=== PATIENT | male | born 1950 | race Caucasian/White ===

== ENCOUNTER 2023-08-29 10:22 | Outpatient (AMB) | payer MEDICARE, SELFPAY ==
--- NOTE | 2023-08-29 07:53 | A.OFFPC_ITS ---
Vital Signs 08/29/23 10:52 Height 5 ft 6 in Weight 230 lb 4 oz BMI 37.2 BP 118/54 L Blood Pressure Location Lt brachial Position Sitting Pulse 72 Pulse Source Pulse Oximeter Temp 97.8 F Temp Source Temporal Artery Scan Pulse Oximetry (%) 94 Oxygen Delivery Method Room Air Intake Visit Reasons: REINA from [facility] Intake Note: patient new patient visit. Lawn Technician Required: No Allergies No Known Allergies Allergy (Verified 08/29/23 10:53) Tobacco use date assessed: 08/29/23 Fall risk assessment: 1 Fall in past year Last assessed Fall Risk: 08/29/23 Dental Screening Dental Screen Date: 08/29/23 Did you have a dental visit in the last 12 months?: Yes Did you have a dental problem in the last 6 months where you did not have access to dental care?: No Was dental information given to patient?: Patient has dentist HPI HPI Comments History of Present Illness Details This is a 73-year-old male with a past medical history of carotid artery stenosis, type 2 diabetes, coronary artery disease and diabetic neuropathy presenting to transfer from [facility] primary care. We have not received his medical records yet. Patient is upset today with his food and beverage intern office. This has been discussed at a previous visit. States he was kept in line waiting 40 minutes to check in, and then they said he was late. He was still seen. Continues to state that COVID-19 vaccine caused his diabetes. Patient said he is not getting anywhere, but I reminded him that his hemoglobin A1c is at goal whereas previously I recall it was over 10%. He checks blood glucose. He needs a prescription for freestyle Lite strips sent to the pharmacy stating he needs testing 5 times a day. He tried a CGM, and he says it was the worst thing he ever did. He also does not like his freestyle Lite monitor. He had labs in July with endocrinology. I do not have them available today. He is upset they said his testosterone level was normal (he says around 300), but he wants it up around 800. Patient says they said his creatinine was mildly elevated. It will be rechecked in October. He saw Nephrology about a year ago, and he was told that his kidney function was great. He is followed by Cardiology and vascular surgery. He exercises regularly and follows a high-fiber, high protein diet. [facility] Medical History (Updated 08/29/23 @ 16:50 by MARIBEL Henry) Carotid artery stenosis Diabetic neuropathy Coronary artery disease Type 2 diabetes mellitus with cardiac complication Surgical History (Updated 08/27/23 @ 16:40 by MARIBEL Henry) History of right-sided carotid endarterectomy Social History Housing: House Patient Tobacco Use Status: Never used Tobacco e-Cigarette/Vaping Use: Never Used service: Yes Current occupational status: retired Cognitive needs: No Hearing needs: Yes Vision needs: No Questionnaire PHQ-9 Over the last 2 weeks, how often have you been bothered by any of the following problems? 1. Little interest or pleasure in doing things: not at all 2. Feeling down, depressed, or hopeless: not at all 3. Trouble falling or staying asleep, or sleeping too much: nearly every day 4. Feeling tired or having little energy: not at all 5. Poor appetite or overeating: not at all 6. Feeling bad about yourself - or that you are a failure or have let yourself or your family down: not at all 7. Trouble concentrating on things, such as reading the newspaper or watching television: not at all 8. Moving or speaking so slowly that other people could have noticed. Or the opposite - being so fidgety or restless that you have been moving around a lot more than usual: not at all 9. Thoughts that you would be better off or of hurting yourself in some way: not at all Total score: 3 [id number] - PHQ-9 Billing: Yes Source: Developed by Drs. Mau Mills, Carlita Valero, Godfrey Haynes and colleagues, with an educational dennise from [employer]. Thrive Questionnaire Date Thrive assessed: 08/29/23 I am a: Patient What is your living situation today?: I have a steady place to live Within the past 12 months, did the food you bought not last and you didn't have the money to get more?: Never true Within the past 12 months, did you worry whether your food would run out before you got money to buy more?: Never true Do you have trouble paying for medicines?: No Do you have trouble getting transportation to medical appointments?: No Do you have trouble paying your heating and electricity bill?: No Do you have trouble taking care of your child, family member or friend?: No Do you have trouble with day-to-day activities such as bathing, preparing meals, shopping, managing finances, etc.?: No Are you currently unemployed and looking for a job?: No Are you interested in more education?: No Please select the resources that you would like help with: None Currently or been in a relationship where the following occur: No concerns reported THRIVE Score: 0 AUDIT C Alcohol Use Questionnaire (AUDIT-C) 1. How often do you have a drink containing alcohol?: Never Total Score: 0 KADY-7 AMB Questionnaire KADY-7 Date KADY - 7 assessed: 08/29/23 Feeling nervous, anxious, or on edge: 0 = Not at all Not being able to stop or control worryin = Not at all Worrying too much about different things: 0 = Not at all Trouble relaxin = Nearly every day Being so restless that it is hard to sit still: 0 = Not at all Becoming easily annoyed or irritable: 0 = Not at all Feeling afraid as if something awful might happen: 0 = Not at all Total KADY-7 score (0-4 normal; 5-9 mild; 10-14 moderate; 15-21 severe): 3 Source: Developed by Drs. Mau Mills, Carlita Valero, Godfrey Haynes and colleagues, with an educational dennise from [employer]. KADY-7 Assessment Billing KADY-7 Assessment Tool: KADY-7 Assessment 71445 Review of Systems Const Details: Constitutional: No unexplained weight loss, fever, chills or night sweats. Respiratory: No shortness of breath, cough or sputum production. Cardiovascular: No chest pain, chest pressure or chest discomfort. No palpitations or pedal edema. Neurologic: No headache, dizziness, syncope Physical exam (Primary Care) Vital Signs: Last Vital Signs Temp 97.8 F 08/29/23 10:52 Pulse 72 08/29/23 10:52 BP 118/54 L 08/29/23 10:52 Pulse Ox 94 08/29/23 10:52 Oxygen Delivery Method Room Air 08/29/23 10:52 BMI result Body Mass Index 37.2 Tobacco/Smoking Status: Tobacco use Status Tobacco use date assessed 08/29/23 08/29/23 10:56 Patient Tobacco Use Status Never used Tobacco 08/29/23 10:56 e-Cigarette/Vaping Use Never Used 08/29/23 10:56 PHQ-9: PHQ-9 Score PHQ-9: Total score 3 08/29/23 11:18 Thrive Assessment: Date of Thrive Assessment Date Thrive assessed 08/29/23 08/29/23 11:04 Currently or been in a relationship where the following occur: No concerns reported Const Other: Constitutional: Alert, in no distress. Head: Normocephalic. Eyes: Pupils are equal, round and reactive to light. Neck: Supple, Full range of motion. No lymphadenopathy. Respiratory: Clear to auscultation. Cardiovascular: S1 S2 regular. No murmurs Extremities: Warm and well perfused. No clubbing, cyanosis or edema. Assessment and Plan Assessment & Plan (1) Carotid artery stenosis: Code(s): I65.29 - Occlusion and stenosis of unspecified carotid artery Qualifiers: Laterality: right Qualified Code(s): I65.21 - Occlusion and stenosis of right carotid artery (2) Diabetic neuropathy: Code(s): E11.40 - Type 2 diabetes mellitus with diabetic neuropathy, unspecified Qualifiers: Diabetes mellitus type: type 2 Diabetes mellitus complication detail: diabetic polyneuropathy Qualified Code(s): E11.42 - Type 2 diabetes mellitus with diabetic polyneuropathy (3) Coronary artery disease: Code(s): I25.10 - Atherosclerotic heart disease of [place] coronary artery without angina pectoris Qualifiers: Coronary Disease-Associated Artery/Lesion type: [place] artery [place] vs. transplanted heart: [place] heart Associated angina: without angina Qualified Code(s): I25.10 - Atherosclerotic heart disease of [place] coronary artery without angina pectoris (4) Type 2 diabetes mellitus with cardiac complication: Code(s): E11.59 - Type 2 diabetes mellitus with other circulatory complications Plan Patient was instructed to continue his current medications. He is followed by Endocrinology, Cardiology and vascular surgery. I offered a referral to see a different food and beverage intern. Patient says he actually likes seeing his endocrine physician so he declined it today. If he changes his mind he will let me know. Reassured he is getting good care, and this is evidenced by his hemoglobin A1c now at goal. I will send test strips to the pharmacy. We are awaiting his transfer records. Medications: New blood sugar diagnostic (FreeStyle Lite Strips) As directed to test blood sugar 5 times daily for type 2 diabetes. 200 ea 11RF Coding Level of Care Code Est Pt Level 4 (47333) Complex EM visit Add On G2211 Diagnoses Stenosis of right carotid artery I65.21 Laterality: right Diabetic polyneuropathy associated with type 2 diabetes mellitus E11.42 Diabetes mellitus type: type 2 Diabetes mellitus complication detail: diabetic polyneuropathy Coronary artery disease involving [place] coronary artery of [place] heart without angina pectoris I25.10 Coronary Disease-Associated Artery/Lesion type: [place] artery [place] vs. transplanted heart: [place] heart Associated angina: without angina Type 2 diabetes mellitus with cardiac complication E11.59 Additional Codes KADY-7 Assessment Billing - KADY-7 Assessment Tool: KADY-7 Assessment [id number] ([id number])
[2023-08-29 10:52] VITALS: BP 118/54; PULSE 72; TEMP 36.6; O2SAT 94; BMI 37.2
== END 2023-08-29 11:28 | disposition home or self-care (01) ==
PROVIDERS: PCP Physician Assistant Medical; Visit Provider Physician Assistant Medical
DX: I65.21 Occlusion and stenosis of right carotid artery (principal); E11.42 Type 2 diabetes mellitus with diabetic polyneuropathy; E11.59 Type 2 diabetes mellitus with other circulatory complications; I25.10 Atherosclerotic heart disease of native coronary artery without angina pectoris
CPT/HCPCS: 99214; G2211

== ENCOUNTER 2024-02-03 11:35 | Outpatient (AMB) | payer MEDICARE, SELFPAY ==
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
[2024-02-03 11:55] VITALS: BP 116/58; PULSE 67; O2SAT 97; BMI 36.2
== END 2024-02-03 12:37 | disposition home or self-care (01) ==
PROVIDERS: PCP Physician Assistant Medical; Visit Provider Physician Assistant Medical
DX: I65.21 Occlusion and stenosis of right carotid artery (principal); I25.10 Atherosclerotic heart disease of native coronary artery without angina pectoris; E11.59 Type 2 diabetes mellitus with other circulatory complications; E11.42 Type 2 diabetes mellitus with diabetic polyneuropathy

== ENCOUNTER → 2024-02-03 11:35 | Outpatient (BNVA) | payer MEDICARE, SELFPAY | PROVIDERS: PCP Physician Assistant Medical; Visit Provider Physician Assistant Medical | DX: I65.21 Occlusion and stenosis of right carotid artery (principal); I25.10 Atherosclerotic heart disease of native coronary artery without angina pectoris; E11.59 Type 2 diabetes mellitus with other circulatory complications; E11.42 Type 2 diabetes mellitus with diabetic polyneuropathy; Z79.4 Long term (current) use of insulin | CPT/HCPCS: 96127; 99212 ==

== ENCOUNTER → 2024-02-05 08:42 | Outpatient (BNV) | payer MEDICARE, SELFPAY | PROVIDERS: PCP Physician Assistant Medical; Visit Provider Physician Assistant Medical | DX: E11.59 Type 2 diabetes mellitus with other circulatory complications (principal) | CPT/HCPCS: 83036 ==

== ENCOUNTER 2024-03-09 11:05 | Outpatient (AMB) | payer MEDICARE, SELFPAY ==
--- NOTE | 2024-03-09 11:19 | MHC.PC.OV ---
Vital Signs 03/09/24 11:25 Height 5 ft 6 in Weight 216 lb 4 oz BMI 34.9 BP 124/54 L Blood Pressure Location Lt brachial Position Sitting Pulse 62 Pulse Source Pulse Oximeter Pulse Oximetry (%) 93 Oxygen Delivery Method Room Air Intake Visit Reasons: [facility] Intake Note: [facility] discharge. Electrical Laboratory Technician Required: No Allergies rosuvastatin [From Crestor] Allergy (Unknown, Verified 03/09/24 11:22) Muscle cramps Medication List - Last Reconciled 03/09/24 by MARIBEL Henry aspirin 81 mg PO DAILY blood glucose control high,low (FreeStyle Control solution) As directed blood sugar diagnostic (FreeStyle Lite Strips) As directed to test blood sugar 5 times daily for type 2 diabetes. cholecalciferol (vitamin D3) 50 mcg PO DAILY cinnamon bark (Cinnamon) . insulin degludec (Tresiba FlexTouch U-100 insulin) 36 units subcut insulin syringe,safety needle As directed to inject insulin lancets (FreeStyle Lancets) As directed losartan 50 mg PO DAILY magnesium glycinate mg PO potassium citrate PO rosuvastatin 10 mg PO BEDTIME [vitamin b .] [vitamin k 50 .] Tobacco use date assessed: 08/29/23 Dental Screening Dental Screen Date: 08/29/23 HPI HPI Comments History of Present Illness Details This is a 73-year-old male with a past medical history of carotid artery stenosis, type 2 diabetes, coronary artery disease and diabetic neuropathy presenting for hospital follow up. Patient was admitted to [facility] 02/20/2024 for crisis. Diagnoses on patient instructions available to me today included acute insomnia and severe episode of major depression with psychotic features. I do not have the clinical discharge summary from the hospitalization. The patient is very upset that he was involuntarily hospitalized. I asked him to tell me what happened since I do not have the notes today. Patient says that someone from his vascular surgery office called him several times that afternoon after he had a carotid artery ultrasound. He says that they told him repeatedly that they would be able to provide the results but not until later in the day and kept calling him. He became very frustrated. Patient says he told them that he would rather be than get another phone call from them. Shortly after that he says the police were at his door with tasers drawn. He says that they entered his home and brought him to the emergency department and seized his fire arms. Patient says he sat in the emergency department all night. He had an evaluation there, and he said that they then sent him to an inpatient hospital. He feels it was inappropriate. He says there was people who had severe psychiatric illness. They would not let him shave or sleep alone. They would not give him a knife to eat. He is also upset that he was not allowed to follow a diabetic diet while there. He says a lot of the tests they did did not make sense to him. After 5 days he was discharged. He says the entire experience was stressful for him in his . Since discharge he is taking 50 mg of trazodone nightly, but it does not help. He struggles with chronic insomnia, but he has tried other medications for this and [id number] treatments like melatonin. He says over time he has adjusted to this, and he does not feel tired during the day. He goes to the gym every day. He says he focuses fine. When I inquired if he thought this could be a symptom of marisabel that the clinician may have been concerned about or if there is a family history of bipolar disorder or psychosis he said no. Denies prior mental health crisis. Denies thoughts of self-harm or harming others. ROS: Constitutional: No unexplained weight loss, fever, chills, fatigue or night sweats. Eyes: No vision changes Respiratory: No shortness of breath, cough or sputum production. Cardiovascular: No chest pain, chest pressure or chest discomfort. No palpitations or pedal edema. Gastrointestinal: No anorexia, nausea, vomiting or diarrhea. No abdominal pain Neurologic: No headache, dizziness, syncope. + neuropathy. Denies blackouts, syncopal episodes, forgetfulness. Psychiatric: No SI/HI. Denies depression and anxiety. Physical exam: Constitutional: Alert, in no distress. Neck: Supple, Full range of motion. No lymphadenopathy. Respiratory: Clear to auscultation. Cardiovascular: S1 S2 regular. No murmurs. Extremities: Warm and well perfused. No clubbing, cyanosis or edema. Psychiatric: Patient appears agitated when recalling events of the recent hospitalization. [facility] Medical History (Updated 03/09/24 @ 13:39 by MARIBEL Henry) Insomnia Hospital discharge follow-up Carotid artery stenosis Diabetic neuropathy Coronary artery disease Type 2 diabetes mellitus with cardiac complication Surgical History (Updated 08/27/23 @ 16:40 by MARIBEL Henry) History of right-sided carotid endarterectomy Social History Housing: House Patient Tobacco Use Status: Never used Tobacco e-Cigarette/Vaping Use: Never Used service: Yes Current occupational status: retired Cognitive needs: No Hearing needs: Yes Vision needs: No Questionnaire PHQ-9 Over the last 2 weeks, how often have you been bothered by any of the following problems? 1. Little interest or pleasure in doing things: not at all 2. Feeling down, depressed, or hopeless: not at all 3. Trouble falling or staying asleep, or sleeping too much: nearly every day 4. Feeling tired or having little energy: not at all 5. Poor appetite or overeating: not at all 6. Feeling bad about yourself - or that you are a failure or have let yourself or your family down: not at all 7. Trouble concentrating on things, such as reading the newspaper or watching television: not at all 8. Moving or speaking so slowly that other people could have noticed. Or the opposite - being so fidgety or restless that you have been moving around a lot more than usual: not at all 9. Thoughts that you would be better off or of hurting yourself in some way: not at all Total score: 3 Source: Developed by Drs. Mau Mills, Carlita Valero, Godfrey Haynes and colleagues, with an educational dennise from [employer]. Thrive Questionnaire Date Thrive assessed: 08/29/23 I am a: Patient What is your living situation today?: I have a steady place to live Within the past 12 months, did the food you bought not last and you didn't have the money to get more?: Never true Within the past 12 months, did you worry whether your food would run out before you got money to buy more?: Never true Do you have trouble paying for medicines?: No Do you have trouble getting transportation to medical appointments?: No Do you have trouble paying your heating and electricity bill?: No Do you have trouble taking care of your child, family member or friend?: No Do you have trouble with day-to-day activities such as bathing, preparing meals, shopping, managing finances, etc.?: No Are you currently unemployed and looking for a job?: No Are you interested in more education?: No Please select the resources that you would like help with: None Currently or been in a relationship where the following occur: No concerns reported THRIVE Score: 0 AUDIT C Alcohol Use Questionnaire (AUDIT-C) 1. How often do you have a drink containing alcohol?: Never Total Score: 0 KADY-7 AMB Questionnaire KADY-7 Date KADY - 7 assessed: 08/29/23 Feeling nervous, anxious, or on edge: 0 = Not at all Not being able to stop or control worryin = Not at all Worrying too much about different things: 0 = Not at all Trouble relaxin = Not at all Being so restless that it is hard to sit still: 0 = Not at all Becoming easily annoyed or irritable: 0 = Not at all Feeling afraid as if something awful might happen: 0 = Not at all Total KADY-7 score (0-4 normal; 5-9 mild; 10-14 moderate; 15-21 severe): 0 Source: Developed by Drs. Mau Mills, Carlita Valero, Godfrey Haynes and colleagues, with an educational dennise from [employer]. Physical exam (Primary Care) Vital Signs: Last Vital Signs Pulse 62 03/09/24 11:25 BP 124/54 L 03/09/24 11:25 Pulse Ox 93 03/09/24 11:25 Oxygen Delivery Method Room Air 03/09/24 11:25 BMI result Body Mass Index 34.9 Tobacco/Smoking Status: Tobacco use Status Tobacco use date assessed 08/29/23 03/09/24 11:19 Patient Tobacco Use Status Never used Tobacco 03/09/24 11:19 e-Cigarette/Vaping Use Never Used 03/09/24 11:19 PHQ-9: PHQ-9 Score PHQ-9: Total score 3 03/09/24 11:22 Thrive Assessment: Date of Thrive Assessment Date Thrive assessed 08/29/23 03/09/24 11:19 Currently or been in a relationship where the following occur: No concerns reported Coding Level of Care Code Est Pt Level 4 (13510) Complex EM visit Add On G2211 Diagnoses Hospital discharge follow-up Z09 Insomnia, unspecified type G47.00 Insomnia type: unspecified Assessment & Plan Assessment & Plan (1) Hospital discharge follow-up: Code(s): Z09 - Encounter for follow-up examination after completed treatment for conditions other than malignant neoplasm Category: Medical (2) Insomnia: Code(s): G47.00 - Insomnia, unspecified Category: Medical Qualifiers: Insomnia type: unspecified Qualified Code(s): G47.00 - Insomnia, unspecified Plan I will need to request records from the ER and mental health facility to piece together what happened. He was discharged after 5 days which means they did reassess and find that he was no harm to himself or others after that time. He feels that his statements were blown out of proportion. I told him that chronic insomnia to this degree could be a symptom of a mental health disorder, and I recommend he see a psychiatrist. He declines at this time. He is asking how he can go about getting his firearms back. I am not familiar with the legal proceedings, and he may need to contact an criminal attorney. He may need psychiatric clearance for this. Patient says he is functioning well. He goes to the gym every day. He is living at home with his . He is competent at appointments and follows up with his specialists. He knows he can contact me if he is struggling with depression or anxiety. Patient plans to discontinue trazodone since it is not effective. He is not interested in other treatments for insomnia at this time. He has a follow up with me scheduled.
[2024-03-09 11:25] VITALS: BP 124/54; PULSE 62; O2SAT 93; BMI 34.9
--- OUTSIDE RECORDS SUMMARY | 2024-03-09 12:40 | XMS_ITS | Continuity of Care Document ---
Author Organization [facility] Address [address] [place] [id number]- Care Team Providers Care Linseed Oil Press Tender Name Role Phone Mery Peguero Primary Care Physician [phone] Encounter [facility] Date(s): 01/15/24 - 02/14/24 [facility] [address] [place] [id number] Attending Physician: Allan Elliott Admitting Physician: AdmAllan hernandez Referring Physician: AdmtrAllan Encounter Type: Triage Allergies, Adverse Reactions, Alerts Substance Criticality Severity Reaction Reaction Severity Status Zocor Myalgia, unspecified site Active statins muscle pains wi th older statins Active Immunizations Given and Recorded Vaccine Date Status Refusal Reason SARS-CoV-2 (COVID-19) mRNA BNT-162b2 vac 12/22/20 Recorded SARS-CoV-2 (COVID-19) mRNA BNT-162b2 vac 06/20/20 Recorded SARS-CoV-2 (COVID-19) mRNA BNT-162b2 vac 05/29/20 Recorded Influenza Virus Vaccine (oldterm) 12/03/18 Recorde d influenza virus vaccine, inactivated 1 11/22/17 Gi taina influenza virus vaccine, inactivated 2 11/15/16 Gi taina influenza virus vaccine, inactivated 3 04/27/15 Gi taina influenza virus vaccine, inactivated 4 12/20/13 Gi taina influenza virus vaccine, inactivated 5 12/20/08 Gi taina pneumococcal 13-valent vaccine 6 03/12/17 Given Zostavax (oldterm) 7 06/10/16 Given Influenza Inactive (IM) (oldterm) 8 11/21/15 Given Hepatitis A Adult Vaccine 03/25/14 Given Hepatitis A Adult Vaccine 9 07/01/13 Given hepatitis B adult vaccine 03/25/14 Given hepatitis B adult vaccine 10 07/29/13 Given hepatitis B adult vaccine 11 07/01/13 Given pneumococcal 23-valent vaccine 04/11/13 Given Tet/diphth/pertussis, acel (oldterm) 12 07/14/09 G iven 1Admin Note: [facility] 2[facility] 3[facility] Note: [facility] 4Admin Note: [facility] 5Admin Note: [facility] 6Admin Note: [facility] 7Admin Note: [facility] 8[facility] Note: [facility] 9Result Comment: [07/01/2013] hep A #1 10Result Comment: [07/29/2013] hep b #2 11Result Comment: [07/01/2013] hep B #1 12Admin Note: vis 01/20/08 Medications aspirin 81 mg oral tablet 1 tablet = 81 mg, By Mouth, Daily, # 30 tablet, 0 Refills, Maintenance, 05/02/11 7:15:09 PM EST, Tablet Start Date: 05/02/11 Status: Ordered Quantity: 30.0 Unit: tablet Repeat number: 1 Cardioclear supplement Cardioclear supplement, Refills 0, Maintenance, 08/03/21 5:15:00 PM EDT, Supply Start Date: 08/03/21 Status: Ordered Repeat number: 1 CoQ10 = 300 mg, By Mouth, Daily, 0 Refills, Maintenance, 07/04/20 12:54:00 PM EDT, Partial fill upon patient request if the prescription is for a schedule II opioid drug. Start Date: 07/04/20 Status: Ordered Repeat number: 1 CPAP Machine See Instructions, # 1 each, Maintenance, AutoCPAP 7-11 cm H20, use Daily when sleeping, 09/07/22 4:09:00 PM EDT, Supply Start Date: 09/07/22 Status: Ordered Quantity: 1.0 Unit: each Repeat number: 1 cranberry extract cranberry extract, Refills 0, Maintenance, 08/03/21 5:16:00 PM EDT, Supply Start Date: 08/03/21 Status: Ordered Repeat number: 1 Freestyle Lite Lancets See Instructions, # 200 each, Refills 11, Tot. Refills 11, Maintenance, use as directed for Type 2 Diabetes Mellitus to test up to five times daily, 06/11/23 2:25:00 PM EDT, Supply, 168, cm, 04/12/23 16:09:00 EST, Height Start Date: 06/11/23 Stop Date: 06/05/24 Status: Ordered Quantity: 200.0 Unit: each Repeat number: 12 Indication: Type 2 diabetes mellitus without complications Freestyle Lite Test Strips See Instructions, # 200 each, Refills 11, Tot. Refills 11, Maintenance, use as directed for Type 2 Diabetes Mellitus to test up to five times daily, 06/11/23 2:25:00 PM EDT, Supply, 168, cm, 04/12/23 16:09:00 EST, Height Start Date: 06/11/23 Stop Date: 06/05/24 Status: Ordered Quantity: 200.0 Unit: each Repeat number: 12 Indication: Type 2 diabetes mellitus without complications losartan 50 mg oral tablet 1 tablet = 50 mg, By Mouth, Daily, # 90 tablet, 3 Refills, Maintenance, 09/30/23 2:20:00 PM EDT, Tablet, [facility], Partial fill upon patient request if the prescription is for a schedule II opioid drug., 168, cm, 06/11/23 15:51:00 EDT, Height Start Date: 09/30/23 Status: Ordered Quantity: 90.0 Unit: tablet Repeat number: 4 NovoLOG FlexPen 100 units/mL subcutaneous solution See Instructions, Subcutaneous Injection, inject before meals per sliding scale based on blood glucose: <150: 0 units 151-199: 2 units 200-249: 4 units 250-299: 6 units 300-349: 8 units >350: 10 units, # 15 mL, 5 Refills, Maintenance, 08/21/22 4:29:00 PM EDT, [facility], Partial fill upon patient request if the prescription is for a schedule II opioid drug., 168, cm, 07/24/22 10:21 :00 EDT, Height, 87.9, kg, 10/26/20 16:48:00 EDT, Dry Weight Start Date: 08/21/22 Stop Date: 02/17/23 Status: Ordered Quantity: 15.0 Unit: mL Repeat number: 6 Pen [place], 31 G x 5 mm BD Ultra Fine III See Instructions, # 100 each, Refills 5, Tot. Refills 5, Maintenance, Use as directed, 04/24/22 12:19:00 PM EST, Supply, 168, cm, 04/24/22 11:07:00 EST, Height, 87.9, kg, 10/26/20 16:48:00 EDT, Dry Weight Start Date: 04/24/22 Stop Date: 10/21/22 Status: Ordered Quantity: 100.0 Unit: each Repeat number: 6 rosuvastatin 10 mg oral tablet 1 tablet, By Mouth, Daily, # 90 tablet, 3 Refills, Maintenance, 07/17/23 9:37:00 AM EDT, [facility], 168, cm, 06/11/23 15:51:00 EDT, Height Start Date: 07/17/23 Stop Date: 07/11/24 Status: Ordered Quantity: 90.0 Unit: tablet Repeat number: 4 Indication: Hyperlipidemia, unspecified Tresiba Subcutaneous Infusion, Daily, 0 Refills, Maintenance, 04/12/23 4:09:00 PM EST, Partial fill upon patient request if the prescription is for a schedule II opioid drug. Start Date: 04/12/23 Status: Ordered Repeat number: 1 Vitamin B Complex with C and Calcium oral tablet 3 tablet, By Mouth, Daily, 0 Refills, Maintenance, 07/04/20 12:54:00 PM EDT, Partial fill upon patient request if the prescription is for a schedule II opioid drug. Start Date: 07/04/20 Status: Ordered Repeat number: 1 Vitamin K1 0 Refills, Maintenance, 09/18/21 2:11:00 PM EDT, Partial fill upon patient request if the prescription is for a schedule II opioid drug. 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 Active Allergic rhinitis Confirmed Active Coronary arteriosclerosis Confirmed Active Cyst of skin Confirmed Active Low testosterone Confirmed Active Dyslipidemia Confirmed 1999 Active Essential hypertension Confirmed Active Hoarseness Confirmed Active Stenosis of left internal carotid artery Confirmed Active Depression with anxiety Confirmed Active OBESITY Confirmed 2005 Active Obstructive sleep apnea syndrome Confirmed 2002 Active Old inferior wall myocardial infarction Confirmed Active Neuropathy, peripheral Confirmed Active Restless leg Confirmed Active Severe obesity (BMI 35.0-39.9) with comorbidity Confirmed Active Type 2 diabetes mellitus Confirmed 2006 Active Social History Social History Type Response Smoking Status Never smoker; Tobacc o user in household: No entered on: 03/29/15 Sex Sex Representation Male (finding) Patient Care team information Care Team Personnel Name: Mery Peguero Position: S Associate Professional Member Role: PCP Address: [address] [place] [address] [place] [address]- Telecom: Name: Nuris Burnette RN Position: S RN Member Role: Primary Care Nurse Name: Alison Torres RN Position: S RN Member Role: Primary Care Nurse Care Team Related Persons Name: ELHAM PHOENIX Insurance Providers Guarantor name: DEVORAH BARBOZAROSIERS [facility] Information #: 1 Payer: MEDICARE HMO BLUE [id number] REPLC Member Number: NA Policy Number: NA Group Number: NA
--- OUTSIDE RECORDS SUMMARY | 2024-03-09 12:40 | XMS_ITS | Continuity of Care Document ---
Author Organization [facility] Address [address] [place] [address]- Care Team Providers Care File Machine Operator Name Role Phone Mery Peguero Primary [id number] [address] [place], [place] [address] Attending Physician: Nicolasa Ford NP Admitting Physician: Logan ABARCA, Nicolasa Cottrell Referring Physician: Sheron Villaseñor Encounter Type: Pre Office Visit Allergies, Adverse Reactions, Alerts Substance Criticality Severity [...] Refills, Maintenance, 09/30/23 2:20:00 PM EDT, Tablet, [facility], Partial fill upon patient [...] 5 Refills, Maintenance, 08/21/22 4:29:00 PM EDT, [facility], Partial fill upon patient request if the prescription is for a schedule II opioid drug., 168, cm, 07/24/22 10:21 :00 EDT, Height, 87.9, kg, 10/26/20 16:48:00 EDT, Dry Weight Start Date: 08/21/22 Stop Date: 02/17/23 Status: Ordered Quantity: 15.0 Unit: mL Repeat number: 6 Pen [place], 31 G x 5 mm BD Ultra [...] 3 Refills, Maintenance, 07/17/23 9:37:00 AM EDT, [facility], 168, cm, 06/11/23 15:51:00 [...] Confirmed Active Type 2 diabetes mellitus Confirmed 2005 Active Social History Social History Type Response Smoking Status Never smoker; Tobacc o user in household: No entered on: 03/29/15 Sex Sex Representation Male (finding) Patient Care team information Care Team Personnel Name: Mery Peguero Position: [facility] Associate Professional Member Role: PCP Address: [address] [place] [address] [place], [place] [address] Telecom: Name: Nuris Burnette RN Position: S RN Member Role: Primary Care Nurse Name: Alison Torres RN Position: [facility] RN Member Role: Primary Care Nurse Care Team Related Persons Name: ELHAM PHOENIX Insurance Providers Guarantor name: DEVORAH HENRYIERS Health Plan Information #: 1 Payer: MEDICARE HMO BLUE [id number] REPLC Member Number: [id number] Policy Number: NA Group Number: [id number] Health Plan Information #: 2 Payer: MEDICARE HMO BLUE BC65 REPLC Member Number: [id number] Policy Number: NA Group Number: [id number]
== END 2024-03-09 11:56 | disposition home or self-care (01) ==
PROVIDERS: PCP Physician Assistant Medical; Visit Provider Physician Assistant Medical
DX: Z09 Encounter for follow-up examination after completed treatment for conditions other than malignant neoplasm (principal); G47.00 Insomnia, unspecified

== ENCOUNTER → 2024-03-09 11:05 | Outpatient (BNVA) | payer MEDICARE, SELFPAY | PROVIDERS: PCP Physician Assistant Medical; Visit Provider Physician Assistant Medical | DX: Z09 Encounter for follow-up examination after completed treatment for conditions other than malignant neoplasm (principal); G47.00 Insomnia, unspecified; I25.10 Atherosclerotic heart disease of native coronary artery without angina pectoris; E11.40 Type 2 diabetes mellitus with diabetic neuropathy, unspecified; I65.29 Occlusion and stenosis of unspecified carotid artery | CPT/HCPCS: 96127; 99212 ==

== ENCOUNTER 2024-06-04 11:27 | Outpatient (AMB) | payer MEDICARE, SELFPAY ==
--- NOTE | 2024-06-04 11:30 | MHC.PC.OV ---
Vital Signs 06/04/24 11:37 BMI Reason not done Patient refused/unable BP 124/60 Blood Pressure Location Rt brachial Position Sitting Respiration 14 Pulse 69 Pulse Source Pulse Oximeter Pulse Oximetry (%) 96 Oxygen Delivery Method Room Air Intake Visit Reasons: diabetes follow up Intake Note: Diabetes follow up. Saw Endocrinology yesterday and was told a1c would be too early. Clinical Laboratory Medical Director Required: No Allergies rosuvastatin [From Crestor] Allergy (Unknown, Verified 03/09/24 11:22) Muscle cramps Tobacco use date assessed: 08/29/23 Dental Screening Dental Screen Date: 08/29/23 HPI HPI Comments History of Present Illness Details This is a 74-year-old male with a past medical history of carotid artery stenosis, type 2 diabetes, coronary artery disease and diabetic neuropathy presenting for follow up. Patient is followed by Dr. Campos/Dr. Rasmussen for type 2 diabetes. He is on 18 units of Tresiba and remains off Novolog. He was instructed to decrease Tresiba by 2 units nightly if low sugars continue. Patient had blood work done 2 months ago, and we have requested the results. Patient says everything was normal. Patient reports his hemoglobin A1c was 5.6% at his appointment recently. He exercises regularly and follows a healthy diet. He continues to pursue holistic treatments, but he has stopped seeing a chiropractor. He is followed by Cardiology and vascular surgery. The patient was involuntarily hospitalized to [facility] in February for crisis. He remains upset about that experience. He says that somebody from his vascular surgery office called him several times the afternoon of that date after he had a carotid artery ultrasound. He says they told him repeatedly that they would not be able to provide the results but kept calling him nonetheless, and he got frustrated. He says that he told them he would rather be than get another phone call from them and then shortly after the police were at his door with rotation there is drawn. He is doing okay since then. He continues to struggle with chronic insomnia, and he tried trazodone other medications and ijig-bri-uyyvnkd regimens like melatonin. Patient says over time he has just adjusted to this, and he does not want any intervention or evaluation for it. We have discussed this could be a symptom of mental health disorder like bipolar, but he is not interested in evaluation. Denies SI/HI. Patient reports he had a colonoscopy was a few years ago, and this was normal. He said he was told to repeat it in 10 years. Patient continues to have neuropathy and has spinal stenosis. Patient says he had a sleep study at [facility] 4 months ago and was told his sleep apnea resolved. ROS: Constitutional: No unexplained weight loss, fever, chills, fatigue or night sweats. Eyes: No vision changes Respiratory: No shortness of breath, cough or sputum production. Cardiovascular: No chest pain, chest pressure or chest discomfort. No palpitations or pedal edema. Gastrointestinal: No anorexia, nausea, vomiting or diarrhea. No abdominal pain Neurologic: No headache, dizziness, syncope. + neuropathy Psychiatric: No SI/HI. Physical exam: Constitutional: Alert, in no distress. Neck: Supple, Full range of motion. No lymphadenopathy. Respiratory: Clear to auscultation. Cardiovascular: S1 S2 regular. No murmurs. Abdomen: Soft, nontender, no rebound or guarding. No palpable masses. Extremities: Warm and well perfused. No clubbing, cyanosis or edema. Psychiatric: Normal mood and affect [facility] Medical History (Updated 06/04/24 @ 13:40 by MARIBEL Henry) Insomnia Hospital discharge follow-up Carotid artery stenosis Diabetic neuropathy Coronary artery disease Type 2 diabetes mellitus with cardiac complication Surgical History (Updated 08/27/23 @ 16:40 by MARIBEL Henry) History of right-sided carotid endarterectomy Social History (Updated 06/04/24 @ 11:39 by Taisha Langston CMA) Housing: House Alcohol intake: current Patient Tobacco Use Status: Never used Tobacco e-Cigarette/Vaping Use: Never Used service: Yes Current occupational status: retired Cognitive needs: No Hearing needs: Yes Vision needs: No Questionnaire Thrive Questionnaire Date Thrive assessed: 03/09/24 I am a: Patient What is your living situation today?: I have a steady place to live Within the past 12 months, did the food you bought not last and you didn't have the money to get more?: Never true Within the past 12 months, did you worry whether your food would run out before you got money to buy more?: Never true Do you have trouble paying for medicines?: No Do you have trouble getting transportation to medical appointments?: No Do you have trouble paying your heating and electricity bill?: No Do you have trouble taking care of your child, family member or friend?: No Do you have trouble with day-to-day activities such as bathing, preparing meals, shopping, managing finances, etc.?: No Are you currently unemployed and looking for a job?: No Are you interested in more education?: No Please select the resources that you would like help with: None Currently or been in a relationship where the following occur: No concerns reported THRIVE Score: 0 KADY-7 AMB Questionnaire KADY-7 Date KADY - 7 assessed: 08/29/23 Source: Developed by Drs. Mau Mills, Carlita Valero, Godfrey Haynes and colleagues, with an educational dennise from [employer]. Physical exam (Primary Care) Vital Signs: Last Vital Signs Pulse 69 06/04/24 11:37 Resp 14 06/04/24 11:37 BP 124/60 06/04/24 11:37 Pulse Ox 96 06/04/24 11:37 Oxygen Delivery Method Room Air 06/04/24 11:37 Tobacco/Smoking Status: Tobacco use Status Tobacco use date assessed 08/29/23 06/04/24 11:35 Patient Tobacco Use Status Never used Tobacco 06/04/24 11:39 e-Cigarette/Vaping Use Never Used 06/04/24 11:39 Thrive Assessment: Date of Thrive Assessment Date Thrive assessed 03/09/24 06/04/24 11:35 Currently or been in a relationship where the following occur: No concerns reported Coding Level of Care Code Est Pt Level 4 (91724) Complex EM visit Add On G2211 Diagnoses Stenosis of right carotid artery I65.21 Laterality: right Coronary artery disease involving [place] coronary artery of [place] heart without angina pectoris I25.10 Coronary Disease-Associated Artery/Lesion type: [place] artery [place] vs. transplanted heart: [place] heart Associated angina: without angina Type 2 diabetes mellitus with cardiac complication E11.59 Diabetic polyneuropathy associated with type 2 diabetes mellitus E11.42 Diabetes mellitus type: type 2 Diabetes mellitus complication detail: diabetic polyneuropathy Assessment & Plan Assessment & Plan (1) Carotid artery stenosis: Code(s): I65.29 - Occlusion and stenosis of unspecified carotid artery Category: Medical Qualifiers: Laterality: right Qualified Code(s): I65.21 - Occlusion and stenosis of right carotid artery (2) Coronary artery disease: Code(s): I25.10 - Atherosclerotic heart disease of [place] coronary artery without angina pectoris Category: Medical Qualifiers: Coronary Disease-Associated Artery/Lesion type: [place] artery [place] vs. transplanted heart: [place] heart Associated angina: without angina Qualified Code(s): I25.10 - Atherosclerotic heart disease of [place] coronary artery without angina pectoris (3) Type 2 diabetes mellitus with cardiac complication: Code(s): E11.59 - Type 2 diabetes mellitus with other circulatory complications Category: Medical (4) Diabetic neuropathy: Code(s): E11.40 - Type 2 diabetes mellitus with diabetic neuropathy, unspecified Category: Medical Qualifiers: Diabetes mellitus type: type 2 Diabetes mellitus complication detail: diabetic polyneuropathy Qualified Code(s): E11.42 - Type 2 diabetes mellitus with diabetic polyneuropathy Plan Patient is instructed to continue a diabetic diet. He is followed by endocrinology, and they have given instructions to continue reducing his dose of Tresiba if he has continued low blood sugars. He has a CGM and fingerstick glucometer. He is followed by Cardiology and vascular surgery. Continue current medications. Patient offered behavioral health referrals again today but declines. Sleep hygiene reviewed. Patient declines vaccinations. Follow up in 6 months.
[2024-06-04 11:37] VITALS: BP 124/60; PULSE 69; RESP 14; O2SAT 96
--- OUTSIDE RECORDS SUMMARY | 2024-06-04 12:46 | XMS_ITS | Clinical Summary ---
Author Organization [facility] Address [address] [place] [address] Care Team Providers Care Head Mva Reactor Operator Name Role Phone TylorArsenio rosales Kimberley Primary Care Provider [phone] Allergies No known active allergies Medications * This document contains information received from the source organization and may not represent a complete record from that organization. PredniSONE 10 MG OR TABS as directed on handout 49 0 09/20/2008 Active Social History Tobacco Use Types Packs/Day Years Used Date Smoking Tobacco: Never Assessed Sex and Gender Information Value Date Recorded Sex Assigned at Not on file Legal Sex Male 10:29 AM EDT Gender Identity Not on file Sexual Orientation Not on file Last Filed Vital Signs Vital Sign Reading Time Taken Comments Blood Pressure 116/72 09/20/2008 11:22 AM EDT Pulse 68 09/20/2008 11:22 AM EDT Temperature 36.5 ??C (97.7 ??F) 09/20/2008 11:22 AM E DT Respiratory Rate 16 09/20/2008 11:22 AM EDT Oxygen Saturation - - Inhaled Oxygen Concentration - - Weight - - Height - - Body Mass Index - - Plan of Treatment Health Maintenance Due Date Last Done Comments Hepatitis C Screening 1950 DTaP/Tdap/Td (1 - Tdap) 1968 Pneumococcal 50+ years (1 of 1 - PCV) 2000 Zoster (Shingrix) (1 of 2) 2000 COVID-19 Vaccine ( - 2023-2 5 season) 2023 Influenza (#1) 2023 RSV (1 - 1-dose 75+ series) 2025 Abdominal Aorta Imaging Discontinued HPV Vaccine Aged Out No longer eligi ble based on patient's age to complete this topic Hep A Aged Out No longer eligi ble based on patient's age to complete this topic Hep B Aged Out No longer eligi ble based on patient's age to complete this topic Hib Aged Out No longer eligi ble based on patient's age to complete this topic Meningococcal ACWY Aged Out No longer eligible based on patient's age to complete this topic Zoster (Zostavax) Discontinued Insurance [facility] FEE FOR SERVICE HMO Care Teams Head Mva Reactor Operator Relationship Specialty Start Date End Date Arsenio Arenas [facility] [address] [place] [address] PCP - General 04/04/05
== END 2024-06-04 12:00 | disposition home or self-care (01) ==
LOC: HO.HMCFM 11:27
PROVIDERS: PCP Physician Assistant Medical; Visit Provider Physician Assistant Medical
DX: I65.21 Occlusion and stenosis of right carotid artery (principal); I25.10 Atherosclerotic heart disease of native coronary artery without angina pectoris; E11.59 Type 2 diabetes mellitus with other circulatory complications; E11.42 Type 2 diabetes mellitus with diabetic polyneuropathy

== ENCOUNTER → 2024-06-04 11:27 | Outpatient (BNVA) | payer MEDICARE, SELFPAY | PROVIDERS: PCP Physician Assistant Medical; Visit Provider Physician Assistant Medical | DX: I65.21 Occlusion and stenosis of right carotid artery (principal); I25.10 Atherosclerotic heart disease of native coronary artery without angina pectoris; E11.59 Type 2 diabetes mellitus with other circulatory complications; E11.42 Type 2 diabetes mellitus with diabetic polyneuropathy | CPT/HCPCS: 99212 ==

== ENCOUNTER 2024-12-07 11:35 | Outpatient (AMB) | payer MEDICARE, SELFPAY ==
--- NOTE | 2024-12-07 11:45 | MHC.PC.OV ---
Vital Signs 12/07/24 11:52 Height 5 ft 6 in Weight 221 lb BMI 35.7 BP 134/74 Blood Pressure Location Rt brachial Position Sitting Respiration 14 Pulse 68 Pulse Source Pulse Oximeter Temp 97.3 F Temp Source Temporal Artery Scan Pulse Oximetry (%) 94 Oxygen Delivery Method Room Air Intake Visit Reasons: Type diabetes Intake Note: Mau presents in the office today for a follow up to diabetes. Allergies No Known Allergies Allergy (Verified 12/08/24 17:16) Medication List - Last Reconciled 12/08/24 by MARIBEL Henry amino ac-hydroly collagen-whey 15 gram-100 kcal/30 mL ea PO DAILY aspirin 81 mg PO DAILY blood glucose control high,low (FreeStyle Control solution) As directed blood sugar diagnostic (FreeStyle Lite Strips) As directed to test blood sugar 5 times daily for type 2 diabetes. cholecalciferol (vitamin D3) 50 mcg PO DAILY cinnamon bark (Cinnamon) . insulin syringe,safety needle As directed to inject insulin lancets (FreeStyle Lancets) As directed losartan 50 mg PO DAILY magnesium glycinate mg PO mupirocin 2% (Centany) 1 appl topical BID potassium citrate PO rosuvastatin 10 mg PO BEDTIME turmeric mg PO [vitamin b .] [vitamin k 50 .] Tobacco use date assessed: 12/07/24 Fall risk assessment: No Falls in past year Last assessed Fall Risk: 12/07/24 Dental Screening Dental Screen Date: 12/07/24 Did you have a dental visit in the last 12 months?: Yes Did you have a dental problem in the last 6 months where you did not have access to dental care?: No Was dental information given to patient?: Patient has dentist HPI HPI Comments History of Present Illness Details This is a 74-year-old male with a past medical history of carotid artery stenosis, type 2 diabetes, coronary artery disease and diabetic neuropathy presenting for follow up. A1c <5% off insulin. Patient is followed by Dr. Campos/Dr. Rasmussen for type 2 diabetes. Reports last A1c was less than 5%, and he is off all of his medications and insulin. He exercises regularly and follows a healthy diet. He continues to pursue holistic treatments, but he has stopped seeing a chiropractor. He is followed by Cardiology and vascular surgery. The patient was involuntarily hospitalized to [facility] in February for crisis. He remains upset about that experience. He says that somebody from his vascular surgery office called him several times the afternoon of that date after he had a carotid artery ultrasound. He says they told him repeatedly that they would not be able to provide the results but kept calling him nonetheless, and he got frustrated. He says that he told them he would rather be than get another phone call from them and then shortly after the police were at his door with rotation there is drawn. He is doing okay since then. He continues to struggle with chronic insomnia, and he tried trazodone other medications and hqlj-qda-vvnrqra regimens like melatonin. Patient says over time he has just adjusted to this, and he does not want any intervention or evaluation for it. We have discussed this could be a symptom of mental health disorder like bipolar, but he is not interested in evaluation. Denies SI/HI. Patient reports he had a colonoscopy was a few years ago at [facility] with Dr. Briggs, and this was normal. He said he was told to repeat it in 10 years. Records requested. Patient continues to have neuropathy and has spinal stenosis. Patient declines all immunizations. Several weeks ago he was working out in his yd, and following that he developed an itchy, blistering, red rash on both of his lower legs. He has been using a pine tar soap to keep it clean, and it has dried out. He also applied hydrocortisone initially which alleviated itching. It is no longer itching or painful. He says it is getting better. ROS: Constitutional: No unexplained weight loss, fever, chills, fatigue or night sweats. Eyes: No vision changes Respiratory: No shortness of breath, cough or sputum production. Cardiovascular: No chest pain, chest pressure or chest discomfort. No palpitations or pedal edema. Gastrointestinal: No anorexia, nausea, vomiting or diarrhea. No abdominal pain Neurologic: No headache, dizziness, syncope. + neuropathy Psychiatric: No SI/HI. Physical exam: Constitutional: Alert, in no distress. Neck: Supple, Full range of motion. No lymphadenopathy. No palpable masses. Respiratory: Clear to auscultation. Cardiovascular: S1 S2 regular. No murmurs. Abdomen: Soft, nontender, no rebound or guarding. No palpable masses. Extremities: Warm and well perfused. No clubbing, cyanosis or edema. Psychiatric: Normal mood and affect Skin: Erythematous papules and postinflammatory pulido on the bilateral shins with a few pinpoint follicular pustules. No swelling, warmth, tenderness or discharge. [facility] Medical History (Updated 12/08/24 @ 17:14 by MARIBEL Henry) Skin rash Insomnia Hospital discharge follow-up Carotid artery stenosis Diabetic neuropathy Coronary artery disease Type 2 diabetes mellitus with cardiac complication Surgical History (Updated 08/27/23 @ 16:40 by MARIBEL Henry) History of right-sided carotid endarterectomy Social History (Updated 12/07/24 @ 11:52 by Ciara Chan CMA) Housing: House Alcohol intake: current Patient Tobacco Use Status: Never used Tobacco e-Cigarette/Vaping Use: Never Used Second Hand Smoke Exposure: No service: Yes Current occupational status: retired Cognitive needs: No Hearing needs: Yes Vision needs: No Questionnaire Thrive Questionnaire Date Thrive assessed: 03/09/24 I am a: Patient What is your living situation today?: I have a steady place to live Within the past 12 months, did the food you bought not last and you didn't have the money to get more?: Never true Within the past 12 months, did you worry whether your food would run out before you got money to buy more?: Never true Do you have trouble paying for medicines?: No Do you have trouble getting transportation to medical appointments?: No Do you have trouble paying your heating and electricity bill?: No Do you have trouble taking care of your child, family member or friend?: No Do you have trouble with day-to-day activities such as bathing, preparing meals, shopping, managing finances, etc.?: No Are you currently unemployed and looking for a job?: No Are you interested in more education?: No Please select the resources that you would like help with: None Currently or been in a relationship where the following occur: No concerns reported THRIVE Score: 0 KADY-7 AMB Questionnaire KADY-7 Date KADY - 7 assessed: 08/29/23 Source: Developed by Drs. Mau Mills, Carlita Valero, Godfrey Haynes and colleagues, with an educational dennise from [employer]. Physical exam (Primary Care) Vital Signs: Last Vital Signs Temp 97.3 F 12/07/24 11:52 Pulse 68 12/07/24 11:52 Resp 14 12/07/24 11:52 BP 134/74 12/07/24 11:52 Pulse Ox 94 12/07/24 11:52 Oxygen Delivery Method Room Air 12/07/24 11:52 BMI result Body Mass Index 35.7 Tobacco/Smoking Status: Tobacco use Status Tobacco use date assessed 12/07/24 12/07/24 11:55 Patient Tobacco Use Status Never used Tobacco 12/07/24 11:52 e-Cigarette/Vaping Use Never Used 12/07/24 11:52 Thrive Assessment: Date of Thrive Assessment Date Thrive assessed 03/09/24 12/07/24 11:46 Currently or been in a relationship where the following occur: No concerns reported Coding Level of Care Code Est Pt Level 4 (06554) Complex EM visit Add On G2211 Diagnoses Stenosis of right carotid artery I65.21 Laterality: right Coronary artery disease involving [place] coronary artery of [place] heart without angina pectoris I25.10 Coronary Disease-Associated Artery/Lesion type: [place] artery [place] vs. transplanted heart: [place] heart Associated angina: without angina Type 2 diabetes mellitus with cardiac complication E11.59 Diabetic polyneuropathy associated with type 2 diabetes mellitus E11.42 Diabetes mellitus type: type 2 Diabetes mellitus complication detail: diabetic polyneuropathy Skin rash R21 Assessment & Plan Assessment & Plan (1) Carotid artery stenosis: Code(s): I65.29 - Occlusion and stenosis of unspecified carotid artery Category: Medical Qualifiers: Laterality: right Qualified Code(s): I65.21 - Occlusion and stenosis of right carotid artery (2) Coronary artery disease: Code(s): I25.10 - Atherosclerotic heart disease of [place] coronary artery without angina pectoris Category: Medical Qualifiers: Coronary Disease-Associated Artery/Lesion type: [place] artery [place] vs. transplanted heart: [place] heart Associated angina: without angina Qualified Code(s): I25.10 - Atherosclerotic heart disease of [place] coronary artery without angina pectoris (3) Type 2 diabetes mellitus with cardiac complication: Code(s): E11.59 - Type 2 diabetes mellitus with other circulatory complications Category: Medical (4) Diabetic neuropathy: Code(s): E11.40 - Type 2 diabetes mellitus with diabetic neuropathy, unspecified Category: Medical Qualifiers: Diabetes mellitus type: type 2 Diabetes mellitus complication detail: diabetic polyneuropathy Qualified Code(s): E11.42 - Type 2 diabetes mellitus with diabetic polyneuropathy (5) Skin rash: Code(s): R21 - Rash and other nonspecific skin eruption Category: Medical Plan Patient is instructed to continue a diabetic diet. His diabetes is in remission. He strictly adhere to lifestyle modifications. He exercises every day at the gym. He is followed by Cardiology and vascular surgery. Continue current medications. He previously said that he had an allergy to statins, but he is taking rosuvastatin without side effects. I recommended labs, but he said he did have blood work done just recently with his group sales coordinator and pecan grower. We can request the results. He has previously declined referral to behavioral health. We have discussed sleep hygiene. The rash is improving. He may have developed contact dermatitis secondary to poison katie. He treated appropriately with ckgp-zdo-ptholhk hydrocortisone. There are a few erythematous papules and follicular pustules on exam today, but exam is not consistent with cellulitis Patient reports the appearance of the rash is improving. He will apply topical mupirocin twice daily until fully resolved and contact the office if there is increased redness, warmth, swelling or worsening of the rash. Monitor for fevers or chills. He understands. Follow up in 6 months. He declines physical/MWV. Medications: New mupirocin 2% (Centany) 1 appl topical BID 22 grams 0RF
[2024-12-07 11:52] VITALS: BP 134/74; PULSE 68; RESP 14; TEMP 36.3; O2SAT 94; BMI 35.7
--- OUTSIDE RECORDS SUMMARY | 2024-12-07 14:12 | XMS_ITS | Clinical Summary ---
Author Organization [facility] Address [address] [place] [id number] Phone Care Team Providers Care Doctor Of Dental Surgery Name Role Phone Kelsie Garrett MD Primary Care Provider Allergies Active Allergy Reactions Criticality Noted Date Comments Coventry Grass 05/14/2022 Itching Simvastatin 07/09/2022 Other reaction(s): Myalgia, unspecified site Elwgjts-Vfw-Qtr Reductase Inhibitors 07/09/2022 Other reaction(s): muscle pains with older statins Medications coenzyme Q10 100 mg capsule Take 100 mg by mouth daily. Active rosuvastatin (CRESTOR) 10 MG tablet Take 10 mg by mouth daily. Active losartan (COZAAR) 50 MG tablet 10/11/19 Active Medication-Free Text Black seed oil Activ e cranberry fruit 400 mg Tab Take 400 mg by mouth daily. Active BD ULTRA-FINE MINI PEN NEEDLE 31 gauge x 05/17 NdleIndications: Type 2 diabetes mellitus with peripheral neuropathy Inject 1 each as directed 4 (four) times a day before meals and nightly. Dx E11.42 400 each 3 10/18/19 Active ACCU-CHEK GUIDE TEST STRIPS Strp stripsIndication s:Type 2 diabetes mellitus with peripheral neuropathy 1 each by Miscellaneous route 3 (three) times a day before meals. Guide me test strips 300 strip 2 10/25/19 Active FREESTYLE LITE METER meter kitIndications:T ype 2 diabetes mellitus with peripheral neuropathy To test blood glucose, dx E11.42 on insulin 1 each 10/03/20 23 Active COLLAGEN MISC by Miscellaneous route. Active CINNAMON BARK ORAL Take by mouth. Activ e TURMERIC ORAL Take by mouth. A ctive Medication-Free TextIndications: mushroom Indications: mushroom Active Medication-Free TextIndications: glycogen Indications: glycogen Active KRILL OIL ORAL Take 2 capsules by mouth. Active FREESTYLE CONTROL SolnIndications: Type 2 diabetes mellitus with peripheral neuropathy To test each new vial of test strips, once open use for 90 days 1 each 3 08/07/19 24 Active FREESTYLE LITE Strp stripsIndication s:Type 2 diabetes mellitus with peripheral neuropathy 1 each by Miscellaneous route 5 (five) times a day. Dx E11.42, on insulin 500 strip 3 08/07/19 24 Active lancets 28 gauge MiscIndications: Type 2 diabetes mellitus with peripheral neuropathy 1 each by Miscellaneous route 5 (five) times a day. Freestyle lite brand, Dx E11.42 on insulin 500 each 3 08/07/19 24 Active blood-glucose meter,continuous (FREESTYLE REX 3 READER) Misc by Miscellaneous route as needed. 1 each 11/13/19 24 Active blood-glucose sensor (FREESTYLE REX 3 SENSOR) Rachael Change sensor every 14 days 2 each 11 11/13/19 24 Active insulin pen needles, disposable, 29 gauge x 1/2 NdleIndications: Type 2 diabetes mellitus with peripheral neuropathy 1 each by Miscellaneous route 4 (four) times a day before meals and nightly. 400 each 2 02/07/20 24 Active NOVOLOG FLEXPEN U-100 INSULIN 100 unit/mL (3 mL) flexpenIndicatio ns:Type 2 diabetes mellitus with peripheral neuropathy Inject 4-12 Units under the skin 3 (three) times a day with meals. (SS: BG 151-199 4 units add 2 units for every 50 points in glucose up to 12 units per dose) 45 mL 2 02/07/20 24 Active Additional Information Patient not taking.Reported on 08/07/2024 insulin degludec U-100 (TRESIBA) injection penIndications:T ype 2 diabetes mellitus with peripheral neuropathy Inject 40-42 Units under the skin nightly at bedtime. 45 mL 2 02/07/20 24 Active Additional Information Patient not taking.Reported on 08/07/2024 glucagon (GVOKE) 1 mg/0.2 mL subcutaneous syringe Inject 0.2 mL (1 mg total) under the skin once as needed for low blood sugar (provide value). 0.2 mL 3 03/05/19 25 Active blood-glucose sensor (FREESTYLE REX 3 PLUS SENSOR) DeviIndications: Type 2 diabetes mellitus with peripheral neuropathy To monitor blood glucose levels, to change the sensor every 15 days 6 each 3 04/08/19 25 Active berberin/grape/g rapefruit/bear (BERBEMYCIN ORAL) Take by mouth. Activ e Active Problems Problem Noted Date Diagnosed Date Type 2 diabetes mellitus with hypoglycemia randal monge 03/05/2024 Assessment & Plan (06/03/2024 9:45 AM EDT): Patient continues to have hypoglycemia mostly overnight while using only Tresiba 22 units after dinner. Average glucose is 95, GMI 5.6%, in target 92%, hypoglycemia 8%. He denies symptoms of hypoglycemia with blood sugars below 70. He continues to exercise in the gym 1.5 hours daily and remains on low carbohydrate diet. -Discussed symptoms, prevention and treatment of hypoglycemia. -Decrease Tresiba to 18 units starting tonight. Continue to decrease dose by 2 units if having blood sugars below the 7080 range. -I am hopeful that he could wean off the Tresiba in the next few weeks. -Call with blood sugar problems -Seeing PCP tomorrow, would defer next labs by PCP Assessment & Plan (03/21/2024 4:31 PM EST): Patient had a recent hospitalization at [facility]. is suspicious that hypoglycemia was the reason for the acute psychotic episode. He is using 40 units of Tresiba at night and NovoLog by sliding scale starting at 15 units for blood sugar over 150 before meals 3 times daily. He was unable to try the Trulicity because of high cost and not interested in on any GLP-1's at this time. Had severe GI side effects on metformin and glipizide in the past. Last 2 weeks of sensor data shows about 6% lows. Patient has no symptoms of hypoglycemia. During the visit blood sugar dipped down to the 60s without any symptoms. We discussed the importance of preventing and treating hypoglycemia. Discussed the rule of 15 and use of glucagon. -Stop NovoLog for now. -Decrease Tresiba to 36 units at bedtime and continue to decrease by 2 to 4 units if blood sugar below 80. -Meet asthma educator to continue to get educated on hypoglycemia prevention and treatment, train on Gvoke pen-Rx sent. -Continue carbohydrate controlled meal plan and regular exercise. -See patient instructions. 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 Discussed importance of rotating injection sites, avoid injecting into muscle. Assessment & Plan (05/31/2023 10:11 PM EDT): Patient is using only his right lower abdomen for injections and has bruising and lipohypertrophy. Discussed importance of rotating injection sites, avoid current injection site. 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 A.m. total testosterone was slightly low 204-215, could be related to the low normal SHBG. Free testosterone was normal. LH was slightly elevated may suggest subclinical primary hypogonadism but no indication for testosterone replacement. May monitor a.m. total and free testosterone periodically Assessment & Plan (02/01/2023 9:02 AM EST): With his last set of blood work his testosterone level was slightly low. He has been taking an over the counter testosterone replacement. Will order labs to check levels Erectile dysfunction 10/17/2022 Assessment & Plan (05/31/2023 10:06 PM EDT): Reports improvement after metoprolol stopped about a month ago. Assessment & Plan (10/17/2022 1:33 PM EDT): He has been experiencing erectile dysfunction off and on for the last 6 months. When questioning if the difficulty is getting or maintaining an erection his response is I'm . Will order blood work to determine if there is a hormonal cause of the erectile dysfunction. Pending the review of lab results will determine what the next step of treatment or workup will be Type 2 diabetes mellitus wit h diabetic polyneuropathy, with long-term current use of insulin 05/14/2022 Overview (05/31/2023): Dx 2009. On basal/bolus insulin about 6 months after Dx. Symptomatic PNP-burning feet, numb hands. Also has spinal stenosis. Assessment & Plan (08/07/2024 8:29 AM EDT): Control is very good based upon the patient's freestyle rex 3+ sensor download. No frequent or severe hypoglycemia. He was able to wean himself off of insulin all together. With his current diet and exercise routine his levels have remained under great control without hypoglycemia. He will continue to monitor his glucose levels and watch his diet and exercise. To call or message with any issues managing his glucose levels. Up to date with [facility]. Labs ordered Assessment & Plan (06/03/2024 9:47 AM EDT): Lower extremity burning below the knees what patient dates back to his third COVID vaccine few years ago. He has been taking alpha lipoid acid at 2600 mg daily, B complex. He is using a foot massage daily. -We discussed that studies on alpha lipoic acid use 600 mg daily -He is not interested in any medication by prescription to decrease symptoms but would like to continue his supplements Assessment & Plan (04/08/2024 10:26 AM EST): Control is doing much better based upon the patient's freestyle rex 3 sensor download. He is no longer having frequent episodes of hypoglycemia since stopping the novolog. Spent the majority of today's visit discussing that having some carbohydrates in his diet spread throughout the day is fine. Discussed the differences between better carbohydrates and less good options. Discussed how the body needs to have some carbohydrates to supply energy. Discussed how hypoglycemia can lead to heart attack and stroke even in the setting of the rest of his health doing well. He is going to work on trying to incorporate some carbohydrates into his diet, ie half an guinean muffin at breakfast, a wrap for lunch with some carbohydrates rather than none, maybe a couple small roasted potatoes at dinner. He is having a hard time getting freestyle rex 3 sensors from his pharmacy, will try sending a prescription for the freestyle rex 3+ sensor to see if these are available. Continue to work on eating healthier and being active. To call or message with any issues managing his glucose levels. Assessment & Plan (02/07/2024 9:29 AM EST): Control is reasonable/good based upon the patient's SMBG readings. He is having frequent lows, he will correct and then is fine. He thinks the lows are coming after his intense work outs. Will lower his tresaiba to help prevent the lows. He wants to have a thicker trent insulin pen needle as he is having issues with the pen needles bending. Continue to work on eating healthy and being active. To all or message with any issues managing his glucose levels. Up to date with [facility]. Labs were done with PCP. Assessment & Plan (08/07/2023 10:15 AM EDT): Control is good based upon the patient's SMBG readings. No frequent or severe hypoglycemia. He had some lows on his download but when recheck via finger stick he was not low. Discussed considering a CGM but he doesn't want one. He would like to be able to check his glucose levels more often. Will increase his testing to 5x daily. Will maintain his insulin regimen. Discussed importance of insulin injection site rotation to help heal the lipohypertrophy. Continue to work on eating healthy and being active. To all or message with any issues managing his glucose levels. Up to date with [facility]. Labs ordered. I have maintained a long-term, longitudinal relationship with this patient, overseeing care of chronic conditions, including diabetes. This care relationship has significantly influenced my decision-making and treatment plans during today's encounter. Assessment & Plan (05/31/2023 10:10 PM EDT): Good control with last A1c of 6.2% in 01/2023. Reported SMBG between 71-130s. No frequent or severe hypoglycemia. He takes Tresiba 42 units at bedtime gradually increased from 30 units. He takes NovoLog about 12 units 3 times a day before meals. Lower extremity paresthesia has improved with high-dose ALA and a lot of other supplements. He did not tolerate Lyrica and declined trying gabapentin in the past. He sees a chiropractor 2 times a week. He is able to exercise very intensively on a daily basis. Sleep is poor. Plan to continue current insulin doses. Call if blood sugar below 70 or over 250 repeatedly. Discussed pros and cons of using amitriptyline at night to decrease the paresthesia, he declined. Will have labs today. Assessment & Plan (02/01/2023 8:54 AM EST): Control is good based upon the patient's SMBG readings and his recent A1C of 6.2%. No frequent or severe hypoglycemia. Will maintain his regimen. Continue to work on eating healthy and being active. To call or message with any issues managing her glucose levels. Up to date with [facility]. Labs ordered for prior to next visit Assessment & Plan (10/17/2022 1:42 PM EDT): Control is good based upon the patient's SMBG readings. No frequent or severe hypoglycemia. Will maintain his current regimen. He questions being able to use jardiance to help improve control. Discussed risks and benefits. Depending upon lab results, will determine if he can use jardiance. If able to use will discuss sending a prescription to his pharmacy. His neuropathy symptoms are worsening. He doesn't want to use gabapentin or lyrica due to potential side effects. Discussed talking with his PCP about looking further at his back, to determine if there is possibly a pinched nerve causing the problem. Continue to work on eating healthy and being active. To call or message with any issues managing his glucose levels. Up to date with [employer]. Labs ordered today Assessment & Plan (07/10/2022 2:42 PM EDT): Control is improving based upon the patient's SMBG readings. No frequent or severe episodes of hypoglycemia. Will adjust his toujeo insulin to help improve his fasting control. Will increase his prandial sliding scale by 2 units at each level to help the post prandial highs. He forgot to do the ordered labs after his last visit. Will order labs today to also include a c-peptide level. Will do this to see if he is still producing any insulin. Discussed that this will not change his treatment regimen now while we work to improve his glucose control, but in the future can help determine if we can attempt to lower his insulin or even qualify for an insulin pump. Continue to work on eating healthy and being active. To call with problems managing his glucose levels. Up to date with [facility]. Labs ordered today Assessment & Plan (05/14/2022 4:37 PM EDT): Control is poor based upon the patient's SMBG readings. No frequent or severe episodes of hypoglycemia. He was recently started on a prandial insulin sliding scale by his PCP office. He feels he is doing well taking the insulin before meals. He questions is insulin a sentence? Are you on this for life? . Discussed using insulin is not a sentence, that using the insulin is replacing what your body is not making enough of. He questions being able to lower his insulin. Discussed that likely with his glucose levels we will not be able to lower his insulin levels. He would like to run blood work to check how much insulin he is still producing. Discussed we can run a fasting glucose and c-peptide level to determine how much insulin if any his body is producing. Discussed that this wouldn't change his medication management at this time. Will adjust his toujeo insulin to help improve his fasting control. Discussed cutting back on the portion of fresh fruit at once. Continue to work on eating healthy and being active. To call with problems managing his glucose levels. Up to date with [facility]. Labs ordered today Encounters Date Type Department Care Team Description 11/09/2024 3:00 PM EDT Nutrition [facility] [address] [place] [address] Nadia Joseph MD Dawicki, UZMA [place] Type 2 diabetes mellitus with peripheral neuropathy (Primary Dx) from Last 3 Months Social History Tobacco Use Types Packs/Day Years Used Date Smoking Tobacco: Former Cigarettes 0.3 4 1 969 - 1972 Passive Smoke Exposure: Past Smokeless Tobacco: Never Tobacco Cessation:Counseling Given: No Alcohol Use Standard Drinks/Week Comments Not Currently 0 (1 standard drink = 0.6 oz pur e alcohol) Education Answer Date Recorded Are you interested in more education? Not on avery e 06/30/2022 Are you concerned about learning? Not on file 06/30/2022 No 06/30/2022 No 06/30/2022 Digital Access Answer Date Recorded No 07/24/2022 No 07/24/2022 Reliable internet access at home? Not on file 07/24/2022 Device with a working camera? Not on file Sex and Gender Information Value Date Recorded Sex Assigned at Not on file Legal Sex Male 10:37 AM EST Gender Identity Not on file Sexual Orientation Not on file Last Filed Vital Signs Vital Sign Reading Time Taken Comments Blood Pressure 134/66 08/07/2024 8:07 AM EDT Pulse 74 08/07/2024 8:07 AM EDT Temperature 36.5 C (97.7 F) 02/01/2023 7:51 AM EST Respiratory Rate 20 07/09/2022 3:40 PM EDT Oxygen Saturation 95% 08/07/2024 8:07 AM EDT Inhaled Oxygen Concentration - - Weight 100.7 kg (222 lb) 08/07/2024 8:07 AM EDT Height 167.6 cm (5' 5.98 ) 08/07/2024 8:07 AM ED T Body Mass Index 35.85 08/07/2024 8:07 AM EDT Plan of Treatment Upcoming Encounters Date Type Department Care Team (Late st Contact Info) Description 02/08/2025 8:40 AM EST Office Visit [facility] [address] [place] [address] Caitlin Rasmussen MD [address] [place] [id number] 05/11/2025 3:00 PM EDT Nutrition [facility] [address] [place] [address] [place] [address] Radha Hartley LDN [address] [place] [phone] Health Maintenance Due Date Last Done Comments Adult Td,Tdap Booster 1950 DEPRESSION SCREENING 1962 HEPATITIS C SCREENING 1968 COLOGUARD 1995 COLONOSCOPY 1995 COLORECTAL CANCER SCREENING 1995 FIT TEST 1995 FOBT 1995 SIGMOIDOSCOPY 1995 VIRTUAL COLONOSCOPY 1995 RSV VACCINE (1 - Risk 50-74 years 1-dose series) 2000 ABDOMINAL AORTIC ANEURYSM (AAA) SCREENING 2015 ZOSTER VACCINES (2 of 3) 08/05/2016 06/10/2016 PNEUMOCOCCAL VACCINES (50+ years) (3 of 3 - PCV20 or PCV21) 03/12/2022 03/12/2017, 04/11/2013 DIABETIC EYE EXAM 05/14/2022 INFLUENZA VACCINE (#1) 2024 9, 11/22/2017, 11/15/2016, Additional history exists COVID-19 VACCINE (2024- season) 2024 12/22/2020, 06/20/2020, 05/29/2020 BLOOD PRESSURE 02/06/2025 08/07/2024 HEMOGLOBIN A1C 02/06/2025 08/07/2024, 03/04, 11/13/2023, Additional history exists CREATININE LEVEL 08/07/2025 08/07/2024, 01/2024, 08/07/2023, Additional history exists POTASSIUM LEVEL 08/07/2025 08/07/2024, 11/02, 08/07/2023, Additional history exists HEPATITIS A VACCINES Aged Out 03/25/2014, 07/02/19 14 No longer eligible based on patient's age to complete this topic SMOKING STATUS SCREENING (Once After 26 Yrs) Completed 08/07/2024 HIB VACCINES Aged Out No longer eligi ble based on patient's age to complete this topic MENINGOCOCCAL VACCINES (ACWY) Aged Out No longer eligible based on patient's age to complete this topic MENINGOCOCCAL VACCINES (B) Aged Out N o longer eligible based on patient's age to complete this topic Medical Devices Not on file Procedures Procedure Name Priority Date/Time Associated Diagnosis Comments HEMOGLOBIN A1C Routine 08/07/2024 8:50 AM EDT Type 2 diabetes mellitus with diabetic polyneuropathy, with long-term current use of insulin BASIC METABOLIC PANEL Routine 08/07/2024 8:50 AM EDT Type 2 diabetes mellitus with diabetic polyneuropathy, with long-term current use of insulin from Last 3 Months or Most Recently Relevant to Health Maintenance Results * Hemoglobin A1c (08/07/2024 8:50 AM EDT) HEMOGLOBIN A1C 5.4 4.3 - 5.8 % [facility] Blood 08/07/2024 8:50 AM EDT 08/07/2024 8:52 AM EDT Annie Osei PA-C LAB BLOOD ORDERABL ES Final Result [facility] [address] [place] [address] * (ABNORMAL) Basic metabolic panel (08/07/2024 8:50 AM EDT) SODIUM 139 133 - 146 mmol/L [facility] CHLORIDE 100 96 - 108 mmol/L [facility] POTASSIUM 4.8 3.3 - 5.1 mmol/L [facility] CO2 29 21 - 35 mmol/L [facility] BUN 32(H) 6 - 19 mg/dL [facility] CREATININE 1.20 0.5 - 1.5 mg/dL [facility] GLUCOSE 122(H) 70 - 99 mg/dL [facility] CALCIUM 10.1 8.4 - 10.3 mg/dL [facility] EGFR 63 >59 mL/min/1.7 3m2 [facility] Comment:Estimated glomerular filtration rate calculated using the CKD-EPI refit equation. ANION GAP 15 10 - 20 mmol/L [facility] Blood 08/07/2024 8:50 AM EDT 08/07/2024 8:52 AM EDT Annie Osei PA-C LAB BLOOD ORDERABL ES Final Result [facility] [address] [place] [address] from Last 3 Months or Most Recently Relevant to Health Maintenance Insurance MEDICARE PART A & B [place] BLUE RE[place]ACEMENT MEDICARE PART A & B [facility] MEDICARE HMO BLUE REPLACEMENT MEDICARE PART A & B MEDICARE HMO BLUE REPLACEMENT MEDICARE PART A & B Member Subscriber Plan / Payer ( fective 2016-Present) Name:Mau Jasso Member ID:[id number] Relation to Subscriber:Self Name:Mau Jasso Subscriber ID:[id number] Payer ID:[id number] Group ID:Not on file Type:Medicare Address: [employer] [address] [place] [phone] [facility] MEDICARE HMO BLUE REPLACEMENT MEDICARE PART A & B MEDICARE HMO BLUE REPLACEMENT MEDICARE PART A & B [place] BLUE REPLACEMENT Care Teams Doctor Of Dental Surgery Relationship Specialty Start Date End Date Kelsie Garrett MD PCP - General Internal Medicine 06/11/24 Additional Source Comments The information contained in this document represents components of the legal health record. It is not the complete legal health record.[facility]
--- OUTSIDE RECORDS SUMMARY | 2024-12-07 14:12 | XMS_ITS | Clinical Summary ---
Author Organization [facility] Address [address] [place] [address] Care Team Providers Care Junior Data Analyst Name Role Phone Tylorbobby Arsenio Kimberley Primary Care Provider [phone] Allergies No known active allergies Medications * [...] 68 09/20/2008 11:22 AM EDT Temperature 36.5 C (97.7 F) 09/20/2008 11:22 AM EDT Respiratory Rate 16 09/20/2008 11:22 AM EDT [...] COVID-19 Vaccine ( - 2023-2 5 season) 2024 Influenza (#1) 2024 RSV (1 - 1-dose 75+ series) 2025 Abdominal Aorta Imaging Discontinued HPV Vaccine (No Doses Required) Completed Hep A Aged Out No longer eligi [...] complete this topic Zoster (Zostavax) Discontinued [place] [address] BC FEE FOR SERVICE HMO Care Teams Junior Data Analyst Relationship Specialty Start Date End Date Arsenio Arenas [facility] [address] [place] [address] PCP - General 04/04/05
== END 2024-12-07 12:25 | disposition home or self-care (01) ==
LOC: HO.HMCFM 11:36
PROVIDERS: PCP Physician Assistant Medical; Visit Provider Physician Assistant Medical
DX: I65.21 Occlusion and stenosis of right carotid artery (principal); I25.10 Atherosclerotic heart disease of native coronary artery without angina pectoris; E11.59 Type 2 diabetes mellitus with other circulatory complications; E11.42 Type 2 diabetes mellitus with diabetic polyneuropathy; R21 Rash and other nonspecific skin eruption

== ENCOUNTER → 2024-12-07 11:35 | Outpatient (BNVA) | payer MEDICARE, SELFPAY | PROVIDERS: PCP Physician Assistant Medical; Visit Provider Physician Assistant Medical | DX: E11.59 Type 2 diabetes mellitus with other circulatory complications (principal); E11.42 Type 2 diabetes mellitus with diabetic polyneuropathy; I25.10 Atherosclerotic heart disease of native coronary artery without angina pectoris; I65.21 Occlusion and stenosis of right carotid artery; R21 Rash and other nonspecific skin eruption | CPT/HCPCS: 99212 ==